=== PATIENT | female | born 1955 | race Hispanic/Latino ===

== ENCOUNTER 2021-03-30 08:50 | Emergency (ER) | payer BC, MEDICARE ==
[~2021-03-30] VITALS: Ht 144.8 cm; Wt 56.5 kg
== END 2021-03-30 11:01 | disposition home or self-care (01) ==
LOC: FSED 09:35
DX: M79.641 Pain in right hand (principal); S60.011A Contusion of right thumb without damage to nail, initial encounter; W19.XXXA Unspecified fall, initial encounter; E11.9 Type 2 diabetes mellitus without complications; E78.5 Hyperlipidemia, unspecified; F41.9 Anxiety disorder, unspecified; Z85.038 Personal history of other malignant neoplasm of large intestine
CPT/HCPCS: 99282